=== PATIENT | female | born 1940 | race American Indian/Alaskan Native ===

== ENCOUNTER 2021-07-08 10:13 | Outpatient (CLI) | payer MEDICARE ==
--- NOTE | 2021-07-08 16:17 | Mammography Report ---
STEREOTACTIC GUIDED LEFT BREAST BIOPSY, 07/08/2021 CLINICAL INFORMATION / INDICATION: ABNORMAL AND INCONCLUSIVE FINDINGS ON DIAG IMAG OF BREAST. Grouped calcifications retroareolar left breast COMPARISON: Outside mammogram 05/14/2021, 07/08/2021 PROCEDURE: Risks, benefits, and indications to the procedure were discussed with the patient in detail, includin g bleeding, infection, hematoma formation, and inadequate tissue sampling. The patient agreed to proc eed with both verbal and written consent. A timeout procedure was performed with 2 patient identifier s. Targeted stereotactic images were obtained of the area of interest. The targeted area was identified and coordinates were determined. The breast was cleansed and prepped in the usual sterile fashion. Li docaine 1% with and without epinephrine was used for local anesthesia. Under direct stereotatic tray nce, an 8 gauge Mammotome biopsy device was advanced to the correct position and multiple vacuum-assi sted core samples were obtained. Imaging of the specimen demonstrates no definite calcifications iden tified within the sampled tissue. A repeat attempt to obtain more tissue was unsuccessful as the soft pham failed and we were unable to proceed. Postbiopsy images confirm unsatisfactory tissue sampling w ithin the biopsy cavity. The biopsy clip is in the superior position of the left breast rather than r etroareolar position. The biopsy device was removed. Hemostasis was achieved with manual pressure. A sterile pressure dressing was applied to the skin. Post-biopsy mammogram was obtained. The patient tolerated the procedure without difficulty. No complications were encountered. Postbiopsy instructions were discussed with the patient and given in writing. IMPRESSION: 1. Unsuccessful biopsy of calcifications in the retroareolar left breast. Repeat biopsy samples were attempted but were unable to be completed due to failure of the software/biopsy device. Recommend awaiting pathology results. Repeat biopsy may need to be performed if no calcifications are identified by pathology within the specimen. Biopsy results are pending and will be reported in an addendum. Signer Name: Remedios Smith MD Signed: 07/08/2021 4:13 PM Workstation Name: [id number]
--- NOTE | 2021-07-08 16:19 | Mammography Report ---
DIGITAL DIAGNOSTIC MAMMOGRAM WITH CAD , 07/08/2021 CLINICAL INFORMATION / INDICATION: POST STEREO BX TECHNIQUE: Digital left mammographic imaging was performed. This examination was interpreted with the benefit of Computer-aided Detection analysis. COMPARISON: 05/14/2021 FINDINGS: Breast Density: The breasts are heterogeneously dense, which may obscure small masses. A biopsy clip is present in the 12:00 position of the left breast, a few CM superior to the area of i nterest. However, there are some biopsy changes in the retroareolar region. It is unclear if the clip migrated superiorly a few centimeters. We will need to await pathology results. IMPRESSION: Postprocedure mammogram demonstrates the clip to be approximately 2.5 cm above the area o f interest. Awaiting pathology results to determine if biopsy was adequate. Follow up recommendation: Routine yearly A "normal" or negative report should not discourage follow up or biopsy of a clinically significant f inding. A written summary of these findings will be mailed to the patient. The patient will be entered into a mammography reporting system which will generate a reminder letter for the patient's next appointmen t at the appropriate interval. According to the [employer], yearly mammograms are recommended starting at age 40 and continuing as long as a woman is in good health. Breast MRI is recommended for women with an josee roximately 20-25% or greater lifetime risk of breast cancer, including women with a strong family his tory of breast or ovarian cancer and women who have been treated for Hodgkin's disease. Signer Name: Remedios Smith MD Signed: 07/08/2021 4:15 PM Workstation Name: [id number]
== END 2021-07-08 10:14 | disposition home or self-care (01) ==
LOC: SPVWC 10:13
PROVIDERS: ATTEND Surgery
DX: R92.8 Other abnormal and inconclusive findings on diagnostic imaging of breast (principal); R92.1 Mammographic calcification found on diagnostic imaging of breast; Z79.899 Other long term (current) drug therapy
CPT/HCPCS: 19081; 77065; 88305; A4648

== ENCOUNTER 2021-07-22 10:57 | Outpatient (CLI) | payer MEDICARE ==
--- NOTE | 2021-07-22 13:18 | Mammography Report ---
PERCUTANEOUS STEREOTACTIC-GUIDED LEFT BREAST BIOPSY WITH MARKER PLACEMENT HISTORY: Left breast calcifications. CONSENT: Technique, risks and alternatives were discussed with the patient and informed written conse nt obtained. PROCEDURE: The patient was placed in the upright position in the biopsy suite. The calcifications within the lef t retroareolar breast were targeted mammographically. Senior Materials Scientist and stereo pair images were acquired to g enerate the computer-derived coordinates for targeting. The skin overlying the chosen biopsy site wer e cleansed with Betadine. The skin and superficial soft tissues were anesthetized with a small amoun t of buffered 1% lidocaine. The deeper soft tissues were anesthetized with buffered 1% lidocaine wit h epinephrine. A small dermatotomy was created through which the [facility] biopsy device was placed. Pre and post fire st ereo pair images were acquired to confirm appropriate needle trajectory. Using vacuum assistance, mul tiple core specimen samples were acquired. A post procedure stereo pair image suggested adequate samp ling of the target. A post procedure specimen radiograph confirmed calcifications within core specime n samples. A biopsy marker was deposited at the biopsy site and appropriate biopsy marker deposition confirmed via a stereo pair image. Manual pressure was applied at the biopsy site to achieve hemostasis. The incision margins were appro ximated with Steri-Strips. Postprocedure care instructions were administered in both verbal and writt en forms. The patient voiced understanding and departed the [facility] in stable, satisfactory con dition. IMPRESSION Technically successful stereotactic biopsy of left breast retroareolar calcifications. An addendum will be added to this report once pathology results are available. Signer Name: Andrews Esparza MD Signed: 07/22/2021 1:14 PM Workstation Name: [id number]
--- NOTE | 2021-07-22 13:21 | Mammography Report ---
LEFT DIAGNOSTIC MAMMOGRAM INDICATION: Status post left breast stereotactic biopsy of calcifications. COMPARISON: 07/22/2021, 07/08/2021. FINDINGS: Left breast CC and LM projection mammograms were obtained. These demonstrate a biopsy marke r in the left retroareolar central breast at the site of recent stereotactic biopsy. A second biopsy clip located more superiorly is incidentally noted at the site of prior biopsy which was felt to be n ondiagnostic. IMPRESSION: Mammographic images documenting accurate location of a left breast biopsy marker status post stereota ctic biopsy of left retroareolar breast calcification. BI-RADS Category 4: Suspicious for Malignancy. Signer Name: Andrews Esparza MD Signed: 07/22/2021 1:16 PM Workstation Name: [id number]
== END 2021-07-22 10:58 | disposition home or self-care (01) ==
LOC: SPVWC 10:57
PROVIDERS: ATTEND Surgery
DX: R92.8 Other abnormal and inconclusive findings on diagnostic imaging of breast (principal); I10 Essential (primary) hypertension; M19.90 Unspecified osteoarthritis, unspecified site; Z90.710 Acquired absence of both cervix and uterus; Z98.890 Other specified postprocedural states; Z79.899 Other long term (current) drug therapy
CPT/HCPCS: 19081; 77065; 88305; A4648